=== PATIENT | male | born 1970 | race American Indian/Alaskan Native ===

== ENCOUNTER 2018-12-13 11:24 | Emergency (ER) | payer OTHER ==
[2018-12-13 11:39] VITALS: BP 133/87
--- NOTE | 2018-12-13 11:40 | Emergency Department Report ---
Blank Doc - Documentation Documentation: 48 y o male no hx of trauma presents with left finger ring swelling and pain pre diabetic Exam, mild tender, no redness PLAn FT revaluate I&D
[2018-12-13] MEDS ORDERED: IBUPROFEN PO ONE (13:19)
--- NOTE | 2018-12-13 13:40 | XRay Report ---
LEFT FINGERS, 3 VIEWS History: Left finger pain, fourth digit. Findings: There is mild soft tissue swelling at the level of the PIP joint of the fourth digit. Bone mineralization is normal. No acute osseous findings or joint pathology is identified. Impression: Mild soft tissue swelling of the fourth digit. No bony abnormality is detected.
--- NOTE | 2018-12-13 14:00 | Emergency Department Report ---
ED Upper Extremity Inj HPI - General Chief Complaint: Extremity Injury, Upper Stated Complaint: (L) HAND/FINGER PAIN Time Seen by Provider: 12/13/18 11:37 Source: patient Mode of arrival: Ambulatory Limitations: No Limitations - History of Present Illness Initial Comments: This is a 48-year-old male nontoxic, well nourished in appearance, no acute signs of distress presents to the ED with c/o of left 4th finger pain 1 week. 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 Patient denies any other trauma. Patient denies any numbness, tingling, fever, chills, nausea, vomiting, chest pain, shortness of breath, headache, stiff neck. Patient denies any joint swelling or joint redness. Patient denies decreased ROM. Patient stated allergies to cipro. MD Complaint: Injury to:: left, finger -: week(s) (1) Other Extremity Injury: Fingers: Left Other Injuries: none Severity scale (0 -10): 8 Improves With: none Worsens With: none Associated Symptoms: denies other symptoms. denies: weakness, numbness, neck pain, suspects foreign body, nausea/vomiting, heard/felt popping sensat - Related Data Previous Rx's Medication Instructions Recorded Last Taken Type Clindamycin [Clindamycin CAP] 300 mg PO Q8H #21 cap 12/13/18 Unknown Rx Ibuprofen [Motrin] 600 mg PO Q8H PRN #20 tablet 12/13/18 Unknown Rx Allergies Allergy/AdvReac Type Severity Reaction Status Date / Time ciprofloxacin [From Cipro] Allergy Vomiting Verified 12/13/18 11:39 ED Review of Systems ROS: Stated complaint: (L) HAND/FINGER PAIN Other details as noted in HPI Constitutional: denies: chills, fever Eyes: denies: eye pain, eye discharge, vision change ENT: denies: ear pain, throat pain Respiratory: denies: cough, shortness of breath, wheezing Cardiovascular: denies: chest pain, palpitations Endocrine: no symptoms reported Gastrointestinal: denies: abdominal pain, nausea, diarrhea Genitourinary: denies: urgency, dysuria Musculoskeletal: denies: back pain, joint swelling, arthralgia Skin: denies: rash, lesions Neurological: denies: headache, weakness, paresthesias Psychiatric: denies: anxiety, depression Hematological/Lymphatic: denies: easy bleeding, easy bruising ED Past Medical Hx - Social History Smoking Status: Never Smoker Substance Use Type: None - Medications Home Medications: Home Medications Medication Instructions Recorded Confirmed Last Taken Type Clindamycin [Clindamycin CAP] 300 mg PO Q8H #21 cap 12/13/18 Unknown Rx Ibuprofen [Motrin] 600 mg PO Q8H PRN #20 tablet 12/13/18 Unknown Rx ED Physical Exam - General Limitations: No Limitations General appearance: alert, in no apparent distress - Head Head exam: Present: atraumatic, normocephalic - Eye Eye exam: Present: normal appearance - Neck Neck exam: Present: normal inspection, full ROM - Extremities Exam Extremities exam: Present: normal inspection, full ROM, tenderness, normal capillary refill. Absent: joint swelling - Expanded Upper Extremity Exam Left General: Present: normal inspection Shoulder Exam: Present: normal inspection, full ROM Upper Arm exam: Present: normal inspection, full ROM Elbow exam: Present: normal inspection, full ROM Forearm Wrist exam: Present: normal inspection, full ROM. Absent: tenderness, swelling, abrasion, laceration, ecchymosis, deformity, crepidus, dislocation, erythema, tenderness over anatomical snuff box, pain with axial thumb loading Hand Wrist exam: Present: normal inspection, full ROM, tenderness, swelling. Absent: abrasion, laceration, ecchymosis, crepidus, dislocation, erythema, amputation, nail avulsion, subungual hematoma Hand L/R Front: 1 - Positive: other (hard large callous with no redness, induration, flutance, or surrounding celllitis) Vascular: Present: vascular compromise, normal capillary refill - Back Exam Back exam: Present: normal inspection, full ROM - Neurological Exam Neurological exam: Present: alert, oriented X3 - Psychiatric Psychiatric exam: Present: normal affect, normal mood - Skin Skin exam: Present: warm, dry, intact, normal color. Absent: rash - Other Other exam information: Negative tenderness along the course of the flexor sheath. Negative symmetric or fusiform enlargement of the affected digit. Negative finger flexed at rest. Negative pain along the tendon with passive extension. ED Course Vital Signs 12/13/18 12/13/18 11:36 13:33 Temperature 98.0 F Pulse Rate 86 Respiratory 16 17 Rate Blood Pressure 133/87 O2 Sat by Pulse 98 Oximetry - Reevaluation(s) Reevaluation #1: 12/13/18 14:01 Patient is speaking in full sentences with no signs of distress noted. ED Medical Decision Making - Medical Decision Making This is a 48-year-old male that presents with left finger strain. Patient is stable and was examined by me. I referred patient to an orthopedic doctor for further evaluation for possible MRI. X-ray has been obtained and dictated by the radiologist. Patient is notified of the x-ray report with noted by the patient. Patient does have normal gait with no tenderness and no joint swelling. No ecchymosis. no joint redness or swelling. Not warm to touch. No signs of cellulites present. I will treat patient with clinda empirically due to history of DM and area of pain. Patient was instructed to RICE therapy. Patient received Motrin for pain. Patient is discharged with Motrin. At time of discharge, the patient does not seem toxic or ill in appearance. No acute signs of distress noted. Patient agrees to discharge treatment plan of care. No further questions noted by the patient. - Differential Diagnosis Tenosynovitis, fracture, dislocation, strain Critical care attestation.: If time is entered above; I have spent that time in minutes in the direct care of this critically ill patient, excluding procedure time. ED Disposition Clinical Impression: Strain of left ring finger Qualifiers: Encounter type: initial encounter Qualified Code(s): S66.912A - Strain of unspecified muscle, fascia and tendon at wrist and hand level, left hand, initial encounter Disposition: DC-01 TO HOME OR SELFCARE Is pt being admited?: No Does the pt Need Aspirin: No Condition: Stable Instructions: RICE Therapy (ED) Additional Instructions: Follow-up with a orthopedic doctor in 3-5 days or if symptoms worsen and continue return to emergency room as soon as possible. Prescriptions: Clindamycin [Clindamycin CAP] 300 mg PO Q8H #21 cap Ibuprofen [Motrin] 600 mg PO Q8H PRN #20 tablet PRN Reason: Pain Referrals: PRIMARY CARE, [Referring] - 3-5 Days HUNTER XIE MD [Staff Physician] - 3-5 Days [facility] [Outside] - 3-5 Days Forms: Work/School Release Form(ED)
== END 2018-12-13 14:24 | disposition home or self-care (01) ==
LOC: ED 11:24
DX: S66.115A Strain of flexor muscle, fascia and tendon of left ring finger at wrist and hand level, initial encounter (principal); Z88.1 Allergy status to other antibiotic agents; X58.XXXA Exposure to other specified factors, initial encounter; Y93.89 Activity, other specified; Y92.89 Other specified places as the place of occurrence of the external cause; Y99.8 Other external cause status

== ENCOUNTER 2021-07-25 09:30 | Emergency (ER) | payer SELFPAY ==
[2021-07-25 09:46] VITALS: BP 124/86
[2021-07-25] MEDS ORDERED: TETANUS,DIPH,PERTUSS(ACELL) VACCINE 0.5 ML SYRINGE IM ONE (10:13)
--- NOTE | 2021-07-25 10:13 | Emergency Department Report ---
ED Upper Extremity Inj HPI - General Chief Complaint: Extremity Problem,Nontraumatic Stated Complaint: LT HAND INJURY Time Seen by Provider: 07/25/21 10:07 Source: patient Mode of arrival: Ambulatory Limitations: No Limitations - History of Present Illness Initial Comments: Patient is a [id number]-pmttccaf gentleman that came in with left hand celluliti s. He has been working in the yard. He sustained some superficial abrasions to the dorsum of the left hand. These were over the MCP areas of the first and second fingers. Thumb was uninvolved. He has noticed increased pain and swelling over the last 24 hours. He has had a hand infection before and had to be in the hospital for a week. He wants to prevent that this time. He does not know when his last tetanus shot occurred. He is complaining of localized pain in the left hand. The pain is radiating up into the wrist area. There is no wrist trauma. He has noticed swelling in the left hand at the index and middle finger MCP areas. These are where the abrasions occurred. Patient has no fevers or chills. There is no cough or congestion. He has no vomiting or diarrhea. There is no history of direct trauma. He states that he actually just scraped it on a branch or tree. Pain is worsened by movement of the fingers and hands. It is worsened by palpation. - Related Data Previous Rx's Medication Instructions Recorded Last Taken Type Clindamycin [Clindamycin CAP] 300 mg PO Q8H #21 cap 12/13/18 Unknown Rx Ibuprofen [Motrin] 600 mg PO Q8H PRN #20 tablet 12/13/18 Unknown Rx Doxycycline Monohydrate 100 mg PO BID #20 capsule 07/25/21 Unknown Rx [Doxycycline Monohydrate CAP] Ibuprofen [Motrin 600 MG tab] 600 mg PO Q8H PRN #20 tablet 07/25/21 Unknown Rx Allergies Allergy/AdvReac Type Severity Reaction Status Date / Time ciprofloxacin [From Cipro] Allergy Vomiting Verified 12/13/18 11:39 ED Review of Systems ROS: Stated complaint: LT HAND INJURY Other details as noted in HPI Comment: All other systems reviewed and negative Constitutional: denies: fever Eyes: denies: eye pain ENT: denies: throat pain Respiratory: denies: cough Cardiovascular: denies: chest pain Endocrine: denies: unexplained weight loss Gastrointestinal: denies: abdominal pain Genitourinary: denies: dysuria Musculoskeletal: denies: back pain Skin: denies: rash Neurological: denies: numbness Hematological/Lymphatic: denies: easy bruising ED Past Medical Hx - Past Medical History Previous Medical History?: Yes Hx Diabetes: Yes - Surgical History Past Surgical History?: No - Family History Family history: no significant - Social History Smoking Status: Never Smoker Substance Use Type: None - Medications Home Medications: Home Medications Medication Instructions Recorded Confirmed Last Taken Type Clindamycin [Clindamycin CAP] 300 mg PO Q8H #21 cap 12/13/18 Unknown Rx Ibuprofen [Motrin] 600 mg PO Q8H PRN #20 tablet 12/13/18 Unknown Rx Doxycycline Monohydrate 100 mg PO BID #20 capsule 07/25/21 Unknown Rx [Doxycycline Monohydrate CAP] Ibuprofen [Motrin 600 MG tab] 600 mg PO Q8H PRN #20 tablet 07/25/21 Unknown Rx ED Physical Exam - General Limitations: No Limitations General appearance: alert, in no apparent distress - Head Head exam: Present: atraumatic, normocephalic - Eye Eye exam: Present: normal appearance, EOMI. Absent: scleral icterus - ENT ENT exam: Present: normal external ear exam - Neck Neck exam: Present: normal inspection. Absent: meningismus - Respiratory Respiratory exam: Absent: respiratory distress - Cardiovascular Cardiovascular Exam: Present: other (Pulses are equal and symmetric. Capillary fill is brisk.) - GI/Abdominal GI/Abdominal exam: Present: other (Flat) - Extremities Exam Extremities exam: Present: joint swelling (There is swelling over the index finger MCP on the left hand. There is superficial abrasions to the dorsum of the left hand as well. Patient has no passive tenosynovitis. There is no tenderness with range of motion at the index or middle fingers. There is no pro ximal erythema or warmth or edema.) - Neurological Exam Neurological exam: Present: alert, oriented X3. Absent: motor sensory deficit - Psychiatric Psychiatric exam: Present: normal affect, normal mood - Skin Skin exam: Present: warm, dry ED Course Vital Signs 07/25/21 09:42 Pulse Rate 92 H Respiratory 16 Rate Blood Pressure 124/86 [Left] O2 Sat by Pulse 97 Oximetry - Reevaluation(s) Reevaluation #1: 07/25/21 10:16 Tetanus booster was given. ED Medical Decision Making - Medical Decision Making Tetanus booster was updated. Patient was started on antibiotics and referred for outpatient evaluation and follow-up. He does have evidence of a cellulitis involving the right hand. There is no passive tenosynovitis suggest any type of joint infection. There is no deep trauma noted to the hand. He has superficial abrasions. Patient states he has had this before and these symptoms are milder than previous. He has no numbness or tingling suggestive of neurologic compromise. Capillary fill is brisk. Pulses are intact. There is no evidence of vascular compromise. There is no bony deformity or point tenderness that would suggest any type of fracture or dislocation. Critical Care Time: No Critical care attestation.: If time is entered above; I have spent that time in minutes in the direct care of this critically ill patient, excluding procedure time. ED Disposition Clinical Impression: Cellulitis of hand, left Hand abrasion, infected Qualifiers: Encounter type: initial encounter Laterality: left Qualified Code(s): S60.512A - Abrasion of left hand, initial encounter Disposition: HOME / SELF CARE / HOMELESS Is pt being admited?: No Does the pt Need Aspirin: No Condition: Stable Instructions: Cellulitis, Adult, Wound Care, Adult Additional Instructions: Ice and elevate the hand. Take all of the antibiotics. Keep the wounds clean. Return for problems. Follow-up with your regular doctor for recheck and further evaluation. Prescriptions: Doxycycline Monohydrate [Doxycycline Monohydrate CAP] 100 mg PO BID #20 capsule Ibuprofen [Motrin 600 MG tab] 600 mg PO Q8H PRN #20 tablet PRN Reason: Pain
== END 2021-07-25 10:57 | disposition home or self-care (01) ==
LOC: ED 09:30
DX: S60.512A Abrasion of left hand, initial encounter (principal); L03.114 Cellulitis of left upper limb; X58.XXXA Exposure to other specified factors, initial encounter; Y93.89 Activity, other specified; Y92.89 Other specified places as the place of occurrence of the external cause; Y99.8 Other external cause status
CPT/HCPCS: 90471; 90715; 99282

== ENCOUNTER 2021-08-15 07:02 | Emergency (ER) | payer SELFPAY ==
[2021-08-15 07:38] VITALS: BP 115/93
--- NOTE | 2021-08-15 07:48 | Emergency Department Report ---
Minor Respiratory - HPI Chief Complaint: Nausea/Vomiting/Diarrhea Stated Complaint: COUGH CHEST CONJESTION HEADACHE Time Seen by Provider: 08/15/21 07:39 Duration: 2 Days Severity: moderate Minor Respiratory: Yes Rhinorrhea, Yes Sore Throat, Yes Able to Tolerate Fluids, Yes Cough, Yes Chest Pain, No Ear Pain, No Sick Contacts, No Hemoptysis, No Fever (With cough) Other History: The patient was evaluated in the emergency department for symptoms described in the history of present illness. He/she was evaluated in the context of the global COVID-19 pandemic, which necessitated consideration that the patient might be at risk for infection with the virus that causes COVID-19. Institutional protocols and algorithms that pertain to the evaluation of patients at risk for COVID-19 are in a state of rapid change based on information released by regulatory bodies including the CDC and federal and state organizations. These policies and algorithms were followed during the patient's care in the emergency department. Please note that these policies, procedures and recommendations changed on a rapid basis. 50-year-old - [place] male presents to the emergency room complaining of chest congestion nasal congestion diarrhea sore throat and cough for couple days. Patient is unvaccinated with no recent Covid testing. Patient does admit to a slight headache. He states he has a history of prediabetes and currently on no meds. He states that he is allergic to ciprofloxacin. Denies any fever or chills. ED Review of Systems ROS: Stated complaint: COUGH CHEST CONJESTION HEADACHE Other details as noted in HPI ED Past Medical Hx - Past Medical History Previous Medical History?: Yes Hx Diabetes: Yes - Surgical History Past Surgical History?: No - Social History Smoking Status: Never Smoker Substance Use Type: None - Medications Home Medications: Home Medications Medication Instructions Recorded Confirmed Last Taken Type Clindamycin [Clindamycin CAP] 300 mg PO Q8H #21 cap 12/13/18 Unknown Rx Ibuprofen [Motrin] 600 mg PO Q8H PRN #20 tablet 12/13/18 Unknown Rx Doxycycline Monohydrate 100 mg PO BID #20 capsule 07/25/21 Unknown Rx [Doxycycline Monohydrate CAP] Ibuprofen [Motrin 600 MG tab] 600 mg PO Q8H PRN #20 tablet 07/25/21 Unknown Rx Minor Respiratory Exam - Exam General: Vital signs noted. No distress. Alert and acting appropriately. HEENT: Yes Moist Mucous Membranes, No Pharyngeal Erythema, No Pharyngeal Exudates, No Rhinorrhea, No Conjuctival Injection, No Frontal Tenderness, No Maxillary Tenderness Ear: Neither TM Bulge, Neither TM Erythema, Neither EAC Pain, Neither EAC Discharge Neck: Yes Supple, No Adenopathy Lungs: Yes Good Air Exchange, No Wheezes, No Ronchi, No Stridor, No Cough, No Labored Respirations, No Retractions, No Use of Accessory Muscles, No Other Abnormal Lung Sounds Heart: Yes Regular, No Murmur Abdomen: Yes Normal Bowel Sounds, No Tenderness, No Peritoneal Signs Skin: No Rash, No Edema Neurologic: Alert and oriented, no deficits. Musculoskeletal: Unremarkable. ED Course Vital Signs 08/15/21 07:35 Temperature 98 F Pulse Rate 104 H Respiratory 16 Rate Blood Pressure 115/93 [Left] O2 Sat by Pulse 96 Oximetry ED Medical Decision Making - Radiology Data Radiology results: report reviewed Study Comments [facility] [address] [place] [address] XRay Report Signed Patient: BASIL POPE MR#: [id number] : 1970 Acct:[id number] Age/Sex: 50 / M ADM Date: 08/15/21 Loc: ED Attending Dr: Ordering Physician: ELI BUNN Date of Service: 08/15/21 Procedure(s): XR chest routine 2V Accession Number(s): [id number] cc: ELI BUNN Fluoro Time In Minutes: CHEST PA AND LATERAL VIEWS INDICATION: cough chest congestion. COMPARISON: None. FINDINGS: Support devices: None. Heart: Within normal limits. Lungs/Pleura: No acute pulmonary or pleural findings. IMPRESSION: 1. No acute findings. Signer Name: Galo Jones MD Signed: 08/15/2021 8:21 AM Workstation Name: [id number] Transcribed By: ANJU Dictated By: Galo Jones MD Electronically Authenticated By: Galo Jones MD Signed Date/Time: 08/15/21820 DD/ 0 TD/TT: - Medical Decision Making 50-year-old -[place] male presents to the emergency room complaining of chest congestion nasal congestion diarrhea sore throat and cough for couple days. Patient is unvaccinated with no recent Covid testing. Patient does admit to a slight headache. He states he has a history of prediabetes and currently on no meds. He states that he is allergic to ciprofloxacin. Denies any fever or chills. Chest x-ray has been ordered. Patient has stable vital signs satting at 98% on room air. Chest x-ray shows no acute findings. Discussed with patient is going to need to get Covid testing. He can take [id number] cough medication Zyrtec to Claritin ibuprofen or Tylenol. Critical care attestation.: If time is entered above; I have spent that time in minutes in the direct care of this critically ill patient, excluding procedure time. ED Disposition Clinical Impression: Suspected COVID-19 virus infection Disposition: HOME / SELF CARE / HOMELESS Is pt being admited?: No Does the pt Need Aspirin: No Condition: Stable Instructions: COVID-19 Frequently Asked Questions, COVID-19: How to Protect Yourself and Others - [facility], Prevent the Spread of COVID-19 if You Are Sick - [facility] Additional Instructions: Chest x-ray shows no acute findings. Vital signs are stable. You can take xyca-gyl-[id number] Zyrtec's or Claritin Robitussin or Delsym for cough. Follow-up with your primary care provider. Your symptoms appear most consistent with a nonspecific viral syndrome. However, given this current pandemic, COVID-19 is in the differential of possibilities. I do recommend outpatient Covid 19 testing. In the meantime, isolate/quarantine yourself and stay away from anyone who is elderly, immunocompromised or chronically ill. You can use ibuprofen every 6-8 hours and Tylenol every 4-8 hours, using the dosing on the back of the bottle, as needed for any fever or body aches. Return to the emergency department with any worsening of your symptoms, development of chest pain or shortness of breath, or with any acute distress. Referrals: SARAH SINGH MD [Staff Physician] - 3-5 Days Forms: Work/School Release Form(ED) Time of Disposition: 08:38
--- NOTE | 2021-08-15 08:25 | XRay Report ---
CHEST PA AND LATERAL VIEWS INDICATION: cough chest congestion. COMPARISON: None. FINDINGS: Support devices: None. Heart: Within normal limits. Lungs/Pleura: No acute pulmonary or pleural findings. IMPRESSION: 1. No acute findings. Signer Name: Galo Jones MD Signed: 08/15/2021 8:21 AM Workstation Name: [id number]
== END 2021-08-15 09:08 | disposition home or self-care (01) ==
LOC: ED 07:02
DX: R07.89 Other chest pain (principal); R09.81 Nasal congestion; R19.7 Diarrhea, unspecified; E11.9 Type 2 diabetes mellitus without complications
CPT/HCPCS: 71046; 99283